=== PATIENT | female | born 1945 | race Caucasian/White ===

== ENCOUNTER → 2016-10-03 | Outpatient (CLI) | payer MEDICARE, OTHER ==
[~2016-10-03] MED LIST: ADVAIR 250-501 EACH INH; ANTIVERT12.5 MG PO; ASPIRIN (CHILDR81 MG PO; ATIVAN1 MG PO; BENADRYL25 MG PO; CORICIDIN HBP1 EACH PO; ELAVIL25 MG PO; ENTRESTO 24 MG1 EACH PO; LIPITOR20 M1 PO; NORCO 5-325 MG1 TAB PO; PLAVIX75 MG PO; PROTONIX40 MG PO; PROZAC40 MG PO; TESSALON PERLE100 MG PO; THERAGRAN-M1 TAB PO; TOPROL XL25 MG PO; TYLENOL EXTRA500 MG PO; VITAMIN D1000 UNIT PO; VOLTAREN 1% GE100 GM TOP
== END | disposition disaster alternative care site (69) ==
LOC: GBCOE 08:45
DX: Z12.31 Encounter for screening mammogram for malignant neoplasm of breast (principal)
CPT/HCPCS: G0202

== ENCOUNTER → 2016-11-07 | Outpatient (CLI) | payer MEDICARE, OTHER ==
[2016-11-07 09:14] LABS: ALBUMIN 3.6 gm/dL (3.5-5.0); ANION GAP 10.9 (10.0-19.0); CALCIUM 8.9 mg/dL (8.5-10.5); CREATININE 0.8 mg/dL (0.5-1.1); POTASSIUM 3.9 mMol/L (3.7-5.1); TOTAL BILIRUBIN 0.3 mg/dL (0.0-1.5); TOTAL PROTEIN 7.2 g/dL (6.0-8.4)
== END ==
LOC: LNHI 08:37
PROVIDERS: Internal Medicine Interventional Cardiology
DX: I50.42 Chronic combined systolic (congestive) and diastolic (congestive) heart failure (principal); I42.9 Cardiomyopathy, unspecified